=== PATIENT | female | born 1985 | race American Indian/Alaskan Native ===

== ENCOUNTER 2020-06-14 11:32 | Emergency (ER) | payer SELFPAY ==
[2020-06-14] MEDS ORDERED: CALCIUM CHLORIDE 1,000 MG/10 ML SYRINGE IV ONE (11:54)
--- NOTE | 2020-06-14 12:00 | Emergency Department Report ---
ED CPR HPI - General Chief Complaint: Cardiac Arrest/CPR Stated Complaint: CARDIAC ARREST Time Seen by Provider: 06/14/20 11:59 Source: EMS (Verbal report received from emergency medical services. EMS documentation not available at time of chart dictation ) Mode of arrival: Stretcher Limitations: Altered Mental Status, Physical Limitation - History of Present Illness Initial Comments: The patient was evaluated in the emergency department for symptoms described in the history of present illness. He/she was evaluated in the context of the global COVID-19 pandemic, which necessitated consideration that the patient might be at risk for infection with the virus that causes COVID-19. Institutional protocols and algorithms that pertain to the evaluation of patients at risk for COVID-19 are in a state of rapid change based on information released by regulatory bodies including the CDC and federal and state organizations. These policies and algorithms were followed during the patient's care in the emergency department. Please note that these policies, procedures and recommendations changed on a rapid basis. Patient is a 35-year-old female. She is not known to myself previously. She is reportedly visiting from [place]. She is brought to the hospital by emergency medical services as an out of hospital nontraumatic cardiac arrest. Patient nonverbal, intubated, receiving CPR, with a GCS of 3 upon initial ER presentation. History obtained entirely from EMS. Apparently, emergency medical services were contacted because the patient had "a seizure or convulsion", while in a car," she has a history of stomach issues." Prior to EMS arrival, the patient stopped breathing and lost pulses. EMS states bystanders and family did not initiate CPR. EMS intubated the patient in the field, initiated high-quality CPR, and standard ACLS interventions. EMS further states that patient had an Accu-Chek of 249 in the field, initially was asystolic, and then developed V. fib. They reportedly shocked the patient twice. Patient was given epinephrine in the field. Upon arrival to this emergency room, pupils are dilated, do not respond to light, patient receiving [id number] ventilation through an endotracheal tube, and is receiving active CPR. Standard ACLS interventions are performed. Patient received high-quality CPR, and standard ACLS medications. She is defibrillated 3 times. Unfortunately, we are not able to obtain pulses. At the end of her resuscitation, the patient is not breathing spontaneously, and she is found to be in asystole. Serial bedside ultrasound showed no recorded ventricular activity, no large pericardial effusion, and cardiac standstill. Resuscitation efforts are subsequently terminated secondary to medical futility, inability to obtain a pulse, evidence of brain , and lack of spontaneous respirations. MD Complaint: stopped breathing -: minute(s) Place: other (Patient is reportedly in a car) Bystander CPR Performed: No AED Applied by Bystander/Personal Chef: No Initial Findings in the Field: no pulse, PEA ROSC in the Field: No Associated Injuries: No Treatments Prior to Arrival: intubation, chest compressions, defribrillated shocks # (2), epinephrine mgs # ED Review of Systems ROS: Stated complaint: CARDIAC ARREST Other details as noted in HPI Comment: Unobtainable due to pts medical conditions ED Physical Exam - General Limitations: Altered Mental Status (Intubated, GCS of 3) General appearance: obese, other (Patient nonverbal) - Head Head exam: Present: atraumatic, normocephalic - Eye Eye exam: Present: normal appearance, other (Pupils dilated and do not react to light) - ENT ENT exam: Present: normal exam, mucous membranes moist, normal external ear exam (Endotracheal tube is noted in the oropharynx) - Neck Neck exam: Present: normal inspection - Respiratory Respiratory exam: Present: other (Patient receiving [id number]-[id number]-[id number] ventilation through an endotracheal tube.) - Cardiovascular Cardiovascular Exam: Absent: normal heart sounds (The patient is pulseless), systolic murmur, diastolic murmur, rubs, gallop - GI/Abdominal GI/Abdominal exam: Present: soft - External exam: Present: normal external exam (Chaperoned by nurse Katelin Yuan) - Extremities Exam Extremities exam: Present: normal inspection - Back Exam Back exam: Present: normal inspection - Neurological Exam Neurological exam: Present: altered, other (Patient has a GCS of 3, and is nonverbal) - Skin Skin exam: Present: warm, dry, intact, normal color. Absent: rash ED Medical Decision Making - Medical Decision Making Differential diagnosis, including but not limited to: Pulmonary embolism, cardiomyopathy, electrolyte derangement, overdose, intracranial hemorrhage Critical care attestation.: If time is entered above; I have spent that time in minutes in the direct care of this critically ill patient, excluding procedure time. ED Disposition Clinical Impression: Cardiac arrest Disposition: DC-20 Is pt being admited?: No Does the pt Need Aspirin: No Condition: Undetermined
== END 2020-06-14 13:00 ==
LOC: ED 11:32
DX: I46.9 Cardiac arrest, cause unspecified (principal)
CPT/HCPCS: 92950